=== PATIENT | male | born 1940 | race Caucasian/White ===

== ENCOUNTER 2024-02-23 18:23 | Emergency (ER) | payer OTHER ==
[~2024-02-23] VITALS: Ht 177.8 cm; Wt 103.9 kg
[2024-02-23] MEDS ORDERED: Tdap Vaccine 0.5 ML SYR (Adult Vaccine) IM ONE (19:20)
[2024-02-23] MEDS ORDERED: CEPHALEXIN500 M1 PO (21:11)
== END 2024-02-23 21:38 | disposition home or self-care (01) ==
LOC: ED 18:23
DX: S61.411A Laceration without foreign body of right hand, initial encounter (principal); I10 Essential (primary) hypertension; J45.909 Unspecified asthma, uncomplicated; Z88.8 Allergy status to other drugs, medicaments and biological substances; X58.XXXA Exposure to other specified factors, initial encounter; Y93.52 Activity, horseback riding; Y92.89 Other specified places as the place of occurrence of the external cause; Y99.8 Other external cause status